=== PATIENT | female | born 1950 | race Caucasian/White ===

== ENCOUNTER 2020-12-12 15:15 | Inpatient (IN) | payer MEDICARE ==
[~2020-12-12] VITALS: Ht 160 cm; Wt 90.7 kg
[2020-12-12 16:40] LABS: HEMOGLOBIN 13.4 gm/dl (12.3-15.3); RED BLOOD COUNT 4.49 M/UL (4.00-5.10); WHITE BLOOD COUNT 8.6 K/UL (4.5-11.0)
[2020-12-12] MEDS ORDERED: LIPITOR TAB 2020 MG PO (21:00)
[2020-12-12] MEDS ORDERED: WELCHOL 625 MG625 MG PO (21:01)
[2020-12-12] MEDS ORDERED: CITALOPRAM HBR20 MG PO (21:01)
[2020-12-12] MEDS ORDERED: QUINAPRIL HCL5 MG PO (21:02)
[2020-12-12] MEDS ORDERED: INVOKANA300 MG PO (21:02)
[2020-12-12] MEDS ORDERED: LEVOTHYROXINE100 MC2 PO (21:03)
[2020-12-12] MEDS ORDERED: ASPIRIN EC81 MG PO (21:37)
[2020-12-12] MEDS ORDERED: ALEVE220 MG PO (21:37)
[2020-12-12] MEDS ORDERED: HUMALOG 10100 UNITS/ SC (21:38)
[2020-12-12] MEDS ORDERED: TRESIBA SC (21:39)
[2020-12-12] MEDS ORDERED: OZEMPIC1 MG/0.75 SC (21:40)
--- NOTE | 2020-12-13 04:45 | NUR ---
PRESSURE DRESSING TO LEFT UPPER CHEST WALL AND CORDIS TO RIGHT JUGULAR. SLING IN PLACE. DRESSINGS CLEAN, DRY, AND INTACT.
[2020-12-13 05:21] LABS: HEMOGLOBIN 12.8 gm/dl (12.3-15.3); RED BLOOD COUNT 4.37 M/UL (4.00-5.10); WHITE BLOOD COUNT 9.4 K/UL (4.5-11.0)
[2020-12-14] MEDS ORDERED: HYDROCODON-ACE1 EAC4 PO (16:57)
== END 2020-12-14 18:00 | disposition home or self-care (01) | DRG 242 ==
LOC: ER1 15:15 → CDU 16:59 → MED SURG 4 20:56
PROVIDERS: Internal Medicine; ADMIT Internal Medicine
PROC: 0JH606Z Insertion of Pacemaker, Dual Chamber into Chest Subcutaneous Tissue and Fascia, Open Approach (ICD-10-PCS; principal; 2020-12-12)
PROC: 02HK3JZ Insertion of Pacemaker Lead into Right Ventricle, Percutaneous Approach (ICD-10-PCS; 2020-12-12)
PROC: 02H63JZ Insertion of Pacemaker Lead into Right Atrium, Percutaneous Approach (ICD-10-PCS; 2020-12-12)
PROC: 05HM33Z Insertion of Infusion Device into Right Internal Jugular Vein, Percutaneous Approach (ICD-10-PCS; 2020-12-12)
PROC: 5A1223Z Performance of Cardiac Pacing, Continuous (ICD-10-PCS; 2020-12-12)
DX: I44.2 Atrioventricular block, complete (principal); R57.0 Cardiogenic shock; I25.10 Atherosclerotic heart disease of native coronary artery without angina pectoris; Z95.1 Presence of aortocoronary bypass graft; Z95.5 Presence of coronary angioplasty implant and graft; I10 Essential (primary) hypertension; E78.5 Hyperlipidemia, unspecified; R00.1 Bradycardia, unspecified; I25.2 Old myocardial infarction; Z20.822 Contact with and (suspected) exposure to COVID-19; Z88.1 Allergy status to other antibiotic agents; Z79.899 Other long term (current) drug therapy; Z79.82 Long term (current) use of aspirin
CPT/HCPCS: ECHO; 33208; 36415; 51702; 71045; 80048; 80053; 82550; 82553; 83735; 83880; 84439; 84443; 84484; 85025; 85027; 85610; 85730; 87635; 93005; 93306; 96374; 96375; 99152; 99153; 99285; C1785; C1898; J1644; J2250; J3010; J3370; J7040; J7050; J7070

== ENCOUNTER 2021-08-10 09:41 | Inpatient (IN) | payer MEDICARE ==
[~2021-08-10] VITALS: Ht 160 cm; Wt 90.3 kg
[~2021-08-10 09:41] MED LIST: ALEVE220 MG PO; ASPIRIN EC81 MG PO; CITALOPRAM HBR20 MG PO; HUMALOG 10100 UNITS/ SC; HYDROCODON-ACE1 EAC4 PO; INVOKANA300 MG PO; LEVOTHYROXINE100 MC2 PO; LIPITOR TAB 2020 MG PO; OZEMPIC1 MG/0.75 SC; QUINAPRIL HCL5 MG PO; TRESIBA SC; WELCHOL 625 MG625 MG PO
[2021-08-10 14:33] LABS: HEMOGLOBIN 14.4 gm/dl (12.3-15.3); RED BLOOD COUNT 4.72 M/UL (4.00-5.10); WHITE BLOOD COUNT 6.9 K/UL (4.5-11.0)
[2021-08-11 04:41] LABS: WHITE BLOOD COUNT 8.1 K/UL (4.5-11.0)
[2021-08-11 04:46] LABS: RED BLOOD COUNT 4.24 M/UL (4.00-5.10)
[2021-08-11] MEDS ORDERED: HUMALOG100 UNIT/1 SQ (09:50)
[2021-08-12 00:48] LABS: ACINETOBACTER BAUMANNII Not Detected (Negative); CANDIDA ALBICANS Not Detected (Negative); CANDIDA KRUSEI Not Detected (Negative); CANDIDA TROPICALIS Not Detected (Negative); ENTEROCOCCUS Not Detected (Negative); ESCHERICHIA COLI Not Detected (Negative); HAEMOPHILUS INFLUENZAE Not Detected (Negative); KLEBSIELLA OXYTOCA Not Detected (Negative); KLEBSIELLA PNEUMONIAE Not Detected (Negative); KPC-CARBAPENEM-RESISTANCE GENE Not Detected (Negative); PROTEUS Not Detected (Negative); PSEUDOMONAS AERUGINOSA Not Detected (Negative); SERRATIA MARCESANS Not Detected (Negative); STAPHYLOCOCCUS Not Detected (Negative); STAPHYLOCOCCUS AUREUS Not Detected (Negative); STREP AGALACTIAE (GROUP B) Not Detected (Negative); STREP PYOGENES (GROUP A) Not Detected (Negative); STREPTOCOCCUS Not Detected (Negative); mecA (METHICILLIN RESIST GENE Not Detected (Negative); vanA/B (VANCOMYCIN RESIST GENE Not Detected (Negative)
[2021-08-12 05:16] LABS: HEMOGLOBIN 11.8 gm/dl (12.3-15.3); RED BLOOD COUNT 3.97 M/UL (4.00-5.10); WHITE BLOOD COUNT 7.2 K/UL (4.5-11.0)
[2021-08-12 05:54] LABS: BUN/CREATININE RATIO 28 (0-10)
[2021-08-13 04:22] LABS: HEMOGLOBIN 11.3 gm/dl (12.3-15.3); RED BLOOD COUNT 3.83 M/UL (4.00-5.10); WHITE BLOOD COUNT 6.4 K/UL (4.5-11.0)
[2021-08-14 03:22] LABS: RED BLOOD COUNT 3.95 M/UL (4.00-5.10); WHITE BLOOD COUNT 6.9 K/UL (4.5-11.0)
[2021-08-14 04:11] LABS: BUN/CREATININE RATIO 27 (0-10)
[2021-08-14] MEDS ORDERED: ELIQUIS2.5 MG PO (10:17)
[2021-08-14] MEDS ORDERED: DEXAMETHASONE6 MG PO (10:17)
--- NOTE | 2021-08-14 12:46 | NUR ---
PATIENT O2 REMOVED FOR SHORT TIME, APPROX 5 MINUTES, HER O2 SAT DROPPED IMMEDIATELY TO 84% OXYGEN PRESENTLY AT 2.5L PATIENT TOLERATING WELL
[2021-08-15 03:08] LABS: HEMOGLOBIN 12.3 gm/dl (12.3-15.3); RED BLOOD COUNT 4.14 M/UL (4.00-5.10); WHITE BLOOD COUNT 6.5 K/UL (4.5-11.0)
== END 2021-08-15 13:40 | disposition home or self-care (01) | DRG 177 ==
LOC: ER1 09:41 → PROG CARE 18:23 → CDU 18:23 → PROG CARE 08-11 08:58
PROVIDERS: Emergency Medicine; ADMIT Internal Medicine
PROC: XW033G6 Introduction of REGN-COV2 Monoclonal Antibody into Peripheral Vein, Percutaneous Approach, New Technology Group 6 (ICD-10-PCS; 2021-08-10)
PROC: 8E0ZXY6 Isolation (ICD-10-PCS; principal; 2021-08-11)
PROC: XW033E5 Introduction of Remdesivir Anti-infective into Peripheral Vein, Percutaneous Approach, New Technology Group 5 (ICD-10-PCS; 2021-08-11)
PROC: 3E0333Z Introduction of Anti-inflammatory into Peripheral Vein, Percutaneous Approach (ICD-10-PCS; 2021-08-11)
DX: U07.1 COVID-19 (principal); J12.82 Pneumonia due to coronavirus disease 2019; J96.01 Acute respiratory failure with hypoxia; Z16.39 Resistance to other specified antimicrobial drug; E78.5 Hyperlipidemia, unspecified; I25.10 Atherosclerotic heart disease of native coronary artery without angina pectoris; E78.00 Pure hypercholesterolemia, unspecified; E11.22 Type 2 diabetes mellitus with diabetic chronic kidney disease; N18.30 Chronic kidney disease, stage 3 unspecified; M19.90 Unspecified osteoarthritis, unspecified site; K21.9 Gastro-esophageal reflux disease without esophagitis; Z79.82 Long term (current) use of aspirin; Z79.4 Long term (current) use of insulin; Z95.0 Presence of cardiac pacemaker; Z79.01 Long term (current) use of anticoagulants; Z90.710 Acquired absence of both cervix and uterus; Z98.51 Tubal ligation status; Z88.1 Allergy status to other antibiotic agents; Z82.49 Family history of ischemic heart disease and other diseases of the circulatory system; Z95.1 Presence of aortocoronary bypass graft; Z95.5 Presence of coronary angioplasty implant and graft; Z23 Encounter for immunization
CPT/HCPCS: 36415; 36600; 71045; 80048; 80053; 80076; 82550; 82553; 82728; 82803; 82962; 83605; 83874; 84484; 85025; 85027; 85379; 86140; 87040; 87077; 87150; 87186; 93005; 94640; 94664; 94760; 96374; 99285; J0456; J0696; J1100; J1650; J7030; M0243; Q9967; U0002

== ENCOUNTER 2022-02-19 14:25 | Inpatient (IN) | payer MEDICARE ==
[~2022-02-19] VITALS: Ht 160 cm; Wt 94.4 kg
[~2022-02-19 14:25] MED LIST changes: +DEXAMETHASONE6 MG PO; +ELIQUIS2.5 MG PO; +HUMALOG100 UNIT/1 SQ
[2022-02-19 15:19] LABS: HEMOGLOBIN 12.5 gm/dl (12.3-15.3); RED BLOOD COUNT 4.22 M/UL (4.00-5.10); WHITE BLOOD COUNT 8.7 K/UL (4.5-11.0)
[2022-02-20 05:21] LABS: RED BLOOD COUNT 4.43 M/UL (4.00-5.10); WHITE BLOOD COUNT 8.9 K/UL (4.5-11.0)
--- NOTE | 2022-02-20 06:27 | NUR ---
AFTER PTS BLOOD DRAW THIS AM SHE STATED SHE NEEDS SOMETHING TO EAT BECAUSE HER BLOOD SUGER FELT LOW. FOOD AND DRINK PROVIDED AT 0555. LAB CALLED A CRITICAL GLUCOSE OF 34 ON HER AM BLOOD WORK THAT WAS DRAWN AT 0440 SOMETHING THIS AM. RECHECKED FSBS AND IT WAS 82 AND PT HAD NO COMPLAINTS.
[2022-02-20] MEDS ORDERED: NYSTATIN60 GM TOP (12:38)
[2022-02-21 03:44] LABS: HEMOGLOBIN 11.9 gm/dl (12.3-15.3); RED BLOOD COUNT 3.99 M/UL (4.00-5.10); WHITE BLOOD COUNT 8.3 K/UL (4.5-11.0)
[2022-02-23 06:17] LABS: HEMOGLOBIN 11.7 gm/dl (12.3-15.3); RED BLOOD COUNT 3.97 M/UL (4.00-5.10); WHITE BLOOD COUNT 7.5 K/UL (4.5-11.0)
[2022-02-23] MEDS ORDERED: LOPRESSOR 25 MG25 MG PO (09:28)
--- NOTE | 2022-02-23 11:08 | NUR ---
OXYGEN SATURATION ON ROOM AIR 81%
== END 2022-02-23 17:47 | disposition home or self-care (01) | DRG 291 ==
LOC: ER1 14:25 → CDU 20:14 → M/S 20:14
PROVIDERS: Internal Medicine; Physician Assistant; ADMIT Internal Medicine
PROC: 5A09357 Assistance with Respiratory Ventilation, Less than 24 Consecutive Hours, Continuous Positive Airway Pressure (ICD-10-PCS; 2022-02-19)
PROC: B24BZZZ Ultrasonography of Heart with Aorta (ICD-10-PCS; principal; 2022-02-20)
DX: I13.0 Hypertensive heart and chronic kidney disease with heart failure and stage 1 through stage 4 chronic kidney disease, or unspecified chronic kidney disease (principal); J96.01 Acute respiratory failure with hypoxia; Z20.822 Contact with and (suspected) exposure to COVID-19; I50.33 Acute on chronic diastolic (congestive) heart failure; J96.02 Acute respiratory failure with hypercapnia; I44.2 Atrioventricular block, complete; I25.5 Ischemic cardiomyopathy; E78.5 Hyperlipidemia, unspecified; E03.9 Hypothyroidism, unspecified; E66.9 Obesity, unspecified; N18.30 Chronic kidney disease, stage 3 unspecified; E11.22 Type 2 diabetes mellitus with diabetic chronic kidney disease; I25.10 Atherosclerotic heart disease of native coronary artery without angina pectoris; Z95.0 Presence of cardiac pacemaker; Z95.1 Presence of aortocoronary bypass graft; I25.2 Old myocardial infarction; Z90.49 Acquired absence of other specified parts of digestive tract; Z90.710 Acquired absence of both cervix and uterus; Z68.37 Body mass index [BMI] 37.0-37.9, adult; Z95.5 Presence of coronary angioplasty implant and graft
CPT/HCPCS: ECHO; 0240U; 36415; 36600; 71045; 71046; 80048; 80053; 82550; 82553; 82803; 82962; 83735; 83880; 84484; 85025; 85027; 87040; 93005; 93306; 94640; 94660; 94664; 94760; 96374; 96375; 99285; J0696; J1644; J1940; J7070

== ENCOUNTER → 2022-03-31 | Outpatient (CLI) | payer MEDICARE ==
[~2022-03-31] MED LIST changes: +LOPRESSOR 25 MG25 MG PO; +NYSTATIN60 GM TOP
[2022-03-31 13:03] LABS: HEMOGLOBIN 12.3 gm/dl (12.3-15.3); RED BLOOD COUNT 4.21 M/UL (4.00-5.10); WHITE BLOOD COUNT 7.1 K/UL (4.5-11.0)
== END ==
LOC: LAB 12:22
PROVIDERS: Internal Medicine
DX: I50.9 Heart failure, unspecified (principal); R09.02 Hypoxemia; J84.9 Interstitial pulmonary disease, unspecified
CPT/HCPCS: 36415; 71046; 80048; 82803; 83880; 85025

== ENCOUNTER 2022-04-18 20:54 | Emergency (ER) | payer MEDICARE ==
[2022-04-18 21:12] LABS: HEMOGLOBIN 11.8 gm/dl (12.3-15.3); RED BLOOD COUNT 4.01 M/UL (4.00-5.10); WHITE BLOOD COUNT 8.2 K/UL (4.5-11.0)
== END 2022-04-19 02:00 | disposition home or self-care (01) ==
LOC: ER1 20:54
PROVIDERS: Family Medicine
DX: R53.1 Weakness (principal); R09.89 Other specified symptoms and signs involving the circulatory and respiratory systems; N18.9 Chronic kidney disease, unspecified; R00.0 Tachycardia, unspecified; R05.9 Cough, unspecified; E78.5 Hyperlipidemia, unspecified; I10 Essential (primary) hypertension; Z88.8 Allergy status to other drugs, medicaments and biological substances; Z95.1 Presence of aortocoronary bypass graft; Z95.0 Presence of cardiac pacemaker
CPT/HCPCS: 71045; 80053; 81001; 82550; 82553; 84484; 85025; 93005; 99285